=== PATIENT | female | born 1980 ===

== ENCOUNTER → 2018-07-14 21:09 | Outpatient (REF) | payer OTHER, SELFPAY ==
[2018-07-16 18:48] LABS: QuantiFERON TB NEGATIVE (Negative)
== END ==
LOC: LAB 21:09
PROVIDERS: Visit Provider Internal Medicine
DX: R76.12 Nonspecific reaction to cell mediated immunity measurement of gamma interferon antigen response without active tuberculosis (principal)
CPT/HCPCS: 86480